=== PATIENT | female | born 1965 | race American Indian/Alaskan Native ===

== ENCOUNTER 2021-03-08 04:44 | Emergency (ER) | payer MEDICARE ==
[2021-03-08] MEDS ORDERED: KETOROLAC 30 MG/1 ML INJ IM ONE (06:21)
[2021-03-08] MEDS ORDERED: amLODIPine 5 MG TAB PO ONE (06:22)
--- NOTE | 2021-03-08 06:53 | XRay Report ---
CHEST 1 VIEW INDICATION: hypertension. COMPARISON: None. FINDINGS: Support devices: None. Heart: Normal. Lungs/Pleura: No acute pulmonary or pleural findings. IMPRESSION: 1. No acute findings. Signer Name: Rickey Kellogg MD Signed: 03/08/2021 6:49 AM Workstation Name: [id number]
--- NOTE | 2021-03-08 07:02 | Emergency Department Report ---
ED General Adult HPI - General Chief complaint: Abdominal Pain Stated complaint: KIDNEY STONES Time Seen by Provider: 03/08/21 06:02 Source: EMS Mode of arrival: Stretcher Limitations: No Limitations - History of Present Illness Initial comments: This is a 55-year-old female with a history of insulin-dependent diabetes and hypertension. She presents to the emergency department with multiple complaints. She states that she receives her care at [facility] and that she has recently been in the emergency department. According to the triage note she was diagnosed with a "kidney stone" and given Percocet but has ran out. The patient tells me that she has taken Percocet for "20 to 30 years". Apparently she does have a chronic pain syndrome. The patient is a rather poor historian. She is somewhat lethargic upon my encounter. She does not describe what sort of testing she underwent at [facility] recently. She states "I have no veins". Her chief complaint appears to be shoulder pain. First she states that only her right shoulder hurts shortly thereafter she limited it to her left shoulder. Again later in the exam she told me her right shoulder was hurting. When asked for clarification she then stated that actually both shoulders hurt. Apparently she has a number of chronic pain complaints to include lower back pain, upper abdominal pain, left side pain from her axilla down. Patient does experience occasional chest tightness but states this is not the reason why she came in. -: Gradual, week(s), month(s), year(s) Location: chest, back, abdomen, upper extremity Radiation: non-radiation Quality: aching Consistency: intermittent Improves with: none Worsens with: none Associated Symptoms: denies other symptoms - Related Data Previous Rx's Medication Instructions Recorded Last Taken Type Lansoprazole [Prevacid] 15 mg PO BID #60 cap 03/08/21 Unknown Rx traMADoL [Ultram 50 MG tab] 50 mg PO Q6HR PRN #10 tablet 03/08/21 Unknown Rx Allergies Allergy/AdvReac Type Severity Reaction Status Date / Time No Known Allergies Allergy Unverified 03/08/21 04:58 ED Review of Systems ROS: Stated complaint: KIDNEY STONES Other details as noted in HPI Constitutional: denies: chills, fever Eyes: denies: eye pain, vision change ENT: denies: ear pain, throat pain Respiratory: denies: cough, shortness of breath Cardiovascular: as per HPI, chest pain. denies: palpitations Endocrine: no symptoms reported Gastrointestinal: abdominal pain. denies: nausea, vomiting, diarrhea Genitourinary: discharge. denies: urgency, dysuria Musculoskeletal: back pain. denies: joint swelling, arthralgia Skin: denies: rash, lesions Neurological: denies: headache, weakness, paresthesias Psychiatric: denies: anxiety, depression Hematological/Lymphatic: denies: easy bleeding, easy bruising ED Past Medical Hx - Past Medical History Hx Hypertension: Yes Hx COPD: Yes - Social History Smoking Status: Current Every Day Smoker Substance Use Type: None - Medications Home Medications: Home Medications Medication Instructions Recorded Confirmed Last Taken Type Lansoprazole [Prevacid] 15 mg PO BID #60 cap 03/08/21 Unknown Rx traMADoL [Ultram 50 MG tab] 50 mg PO Q6HR PRN #10 tablet 03/08/21 Unknown Rx ED Physical Exam - General Limitations: No Limitations General appearance: in no apparent distress, lethargic - Head Head exam: Present: atraumatic, normocephalic - Eye Eye exam: Present: normal appearance. Absent: scleral icterus - ENT ENT exam: Present: mucous membranes moist - Neck Neck exam: Present: normal inspection - Respiratory Respiratory exam: Present: normal lung sounds bilaterally. Absent: respiratory distress - Cardiovascular Cardiovascular Exam: Present: regular rate, normal rhythm. Absent: systolic murmur, diastolic murmur, rubs, gallop - GI/Abdominal GI/Abdominal exam: Present: soft, normal bowel sounds. Absent: distended, tenderness, guarding, rebound - Extremities Exam Extremities exam: Present: normal inspection - Back Exam Back exam: Present: normal inspection - Neurological Exam Neurological exam: Present: alert, oriented X3, CN II-XII intact. Absent: motor sensory deficit - Psychiatric Psychiatric exam: Present: normal mood, flat affect - Skin Skin exam: Present: warm, dry, intact, normal color. Absent: rash ED Course Vital Signs 03/08/21 03/08/21 03/08/21 04:54 04:59 05:00 Temperature 97.9 F Pulse Rate 90 86 Respiratory 19 Rate Blood Pressure 172/101 O2 Sat by Pulse 100 100 Oximetry 03/08/21 03/08/21 03/08/21 05:16 06:00 06:16 Temperature Pulse Rate 83 83 87 Respiratory 18 16 20 Rate Blood Pressure 172/101 172/101 175/84 O2 Sat by Pulse 100 100 Oximetry 03/08/21 03/08/21 03/08/21 06:44 06:46 07:00 Temperature Pulse Rate 85 87 Respiratory 18 18 15 Rate Blood Pressure 156/76 156/76 O2 Sat by Pulse 100 100 Oximetry 03/08/21 03/08/21 03/08/21 07:16 07:30 07:46 Temperature Pulse Rate 89 87 84 Respiratory 21 19 20 Rate Blood Pressure 162/82 150/78 162/82 O2 Sat by Pulse 100 100 100 Oximetry 03/08/21 03/08/21 03/08/21 08:00 08:16 08:30 Temperature Pulse Rate 88 89 89 Respiratory 21 22 21 Rate Blood Pressure 162/82 157/85 157/85 O2 Sat by Pulse 100 100 100 Oximetry 03/08/21 03/08/21 08:46 08:52 Temperature Pulse Rate 88 88 Respiratory 21 Rate Blood Pressure 172/93 O2 Sat by Pulse 100 Oximetry - Reevaluation(s) Reevaluation #1: Patient resting comfortably with a pulse oximetry of 100%. She requested medicine for her "stomach ulcer". He is appropriate for outpatient disposition. I will give her prescription for lansoprazole and tramadol. Primary care follow-up is strongly recommended. 03/08/21 08:59 ED Medical Decision Making - Lab Data Result diagrams: 03/08/21 07:01 03/08/21 07:02 Laboratory Results - last 24 hr 03/08/21 03/08/21 03/08/21 07:01 07:02 Unknown WBC 5.0 RBC 3.41 L Hgb 11.5 Hct 34.6 MCV 102 H MCH 34 H MCHC 33 RDW 14.6 Plt Count 356 Lymph % (Auto) 39.1 H Woods % (Auto) 6.3 Eos % (Auto) 7.4 H Baso % (Auto) 1.3 Lymph # (Auto) 1.9 Woods # (Auto) 0.3 Eos # (Auto) 0.4 Baso # (Auto) 0.1 Seg Neutrophils % 45.9 Seg Neutrophils # 2.3 PT 12.8 INR 0.98 Urine Color Yellow Urine Turbidity Clear Urine pH 6.0 Ur Specific [place] 1.016 Urine Protein <15 mg/dl Urine Glucose (UA) Neg Urine Ketones 20 Urine Blood Neg Urine Nitrite Neg Urine Bilirubin Neg Urine Urobilinogen < 2.0 Ur Leukocyte Esterase Neg Urine WBC (Auto) 2.0 Urine RBC (Auto) < 1.0 U Epithel Cells (Auto) 1.0 Urine Mucus Few Laboratory Results - last 24 hr 03/08/21 03/08/21 03/08/21 07:01 07:02 07:02 WBC 5.0 RBC 3.41 L Hgb 11.5 Hct 34.6 MCV 102 H MCH 34 H MCHC 33 RDW 14.6 Plt Count 356 Lymph % (Auto) 39.1 H Woods % (Auto) 6.3 Eos % (Auto) 7.4 H Baso % (Auto) 1.3 Lymph # (Auto) 1.9 Woods # (Auto) 0.3 Eos # (Auto) 0.4 Baso # (Auto) 0.1 Seg Neutrophils % 45.9 Seg Neutrophils # 2.3 PT 12.8 INR 0.98 Sodium 141 Potassium 3.9 Chloride 104.9 Carbon Dioxide 27 Anion Gap 13 BUN 9 Creatinine 0.5 L Estimated GFR > 60 BUN/Creatinine Ratio 18 Glucose 274 H Calcium 9.1 Total Bilirubin < 0.20 Direct Bilirubin < 0.2 Indirect Bilirubin 0.0 AST 13 ALT 15 Alkaline Phosphatase 84 Total Creatine Kinase 98 Troponin T < 0.010 Total Protein 5.8 L Albumin 3.2 L Albumin/Globulin Ratio 1.2 Urine Color Urine Turbidity Urine pH Ur Specific [place] Urine Protein Urine Glucose (UA) Urine Ketones Urine Blood Urine Nitrite Urine Bilirubin Urine Urobilinogen Ur Leukocyte Esterase Urine WBC (Auto) Urine RBC (Auto) U Epithel Cells (Auto) Urine Mucus Urine Opiates Screen Urine Methadone Screen Ur Barbiturates Screen Ur Phencyclidine Scrn Ur Amphetamines Screen U Benzodiazepines Scrn Urine Cocaine Screen U Marijuana (THC) Screen Drugs of Abuse Note 03/08/21 03/08/21 Unknown Unknown WBC RBC Hgb Hct MCV MCH MCHC RDW Plt Count Lymph % (Auto) Woods % (Auto) Eos % (Auto) Baso % (Auto) Lymph # (Auto) Woods # (Auto) Eos # (Auto) Baso # (Auto) Seg Neutrophils % Seg Neutrophils # PT INR Sodium Potassium Chloride Carbon Dioxide Anion Gap BUN Creatinine Estimated GFR BUN/Creatinine Ratio Glucose Calcium Total Bilirubin Direct Bilirubin Indirect Bilirubin AST ALT Alkaline Phosphatase Total Creatine Kinase Troponin T Total Protein Albumin Albumin/Globulin Ratio Urine Color Yellow Urine Turbidity Clear Urine pH 6.0 Ur Specific [place] 1.016 Urine Protein <15 mg/dl Urine Glucose (UA) Neg Urine Ketones 20 Urine Blood Neg Urine Nitrite Neg Urine Bilirubin Neg Urine Urobilinogen < 2.0 Ur Leukocyte Esterase Neg Urine WBC (Auto) 2.0 Urine RBC (Auto) < 1.0 U Epithel Cells (Auto) 1.0 Urine Mucus Few Urine Opiates Screen Negative Urine Methadone Screen Negative Ur Barbiturates Screen Negative Ur Phencyclidine Scrn Negative Ur Amphetamines Screen Negative U Benzodiazepines Scrn Negative Urine Cocaine Screen Negative U Marijuana (THC) Screen Presumptive positive Drugs of Abuse Note Disclamer - EKG Data -: EKG Interpreted by Me EKG shows normal: sinus rhythm, axis, intervals, QRS complexes, ST-T waves Rate: normal - EKG Data Interpretation: normal EKG Critical care attestation.: If time is entered above; I have spent that time in minutes in the direct care of this critically ill patient, excluding procedure time. ED Disposition Clinical Impression: Poorly-controlled hypertension Chronic pain Qualifiers: Chronic pain type: chronic pain syndrome Qualified Code(s): G89.4 - Chronic pain syndrome Disposition: DC-01 TO HOME OR SELFCARE Is pt being admited?: No Does the pt Need Aspirin: No Condition: Stable Instructions: Abdominal Pain (ED), What You Need to Know About Chronic Back Pain, Managing Your Hypertension, Hypertension, Adult Additional Instructions: Follow-up with your primary care physician on your blood pressure. Rx as directed. Return to the emergency department any acute change or worsening symptoms. Prescriptions: Lansoprazole [Prevacid] 15 mg PO BID #60 cap traMADoL [Ultram 50 MG tab] 50 mg PO Q6HR PRN #10 tablet PRN Reason: Pain Referrals: PRIMARY CARE, [Primary Care Provider] - 2-3 Days Time of Disposition: 09:02
[2021-03-08 07:14] LABS: Basophils # (Auto) 0.1 K/mm3 (0.0-0.1); Basophils % (Auto) 1.3 % (0.0-1.8); Eosinophils # (Auto) 0.4 K/mm3 (0.0-0.4); Eosinophils % (Auto) 7.4 % (0.0-4.3); Hematocrit 34.6 % (30.3-42.9); Hemoglobin 11.5 gm/dl (10.1-14.3); Lymphocytes # (Auto) 1.9 K/mm3 (1.2-5.4); Lymphocytes % (Auto) 39.1 % (13.4-35.0); Mean Corpuscular HGB Conc 33 % (30-34); Mean Corpuscular Volume 102 fl (79-97); Monocytes # (Auto) 0.3 K/mm3 (0.0-0.8); Monocytes % (Auto) 6.3 % (0.0-7.3); Platelet Count 356 K/mm3 (140-440); Red Blood Count 3.41 M/mm3 (3.65-5.03); Red Cell Distribution Width 14.6 % (13.2-15.2)
[2021-03-08 07:24] LABS: INR 0.98 (0.87-1.13)
[2021-03-08 07:54] LABS: Bilirubin,Urine NEG (Negative); Blood,Urine NEG (Negative); Color,Urine Yellow (Yellow); Mucus,Urine FEW /HPF; Protein,Urine <15 mg/dL mg/dL (Negative); RBC,Urine < 1.0 /HPF (0.0-6.0); Urobilinogen,Urine < 2.0 mg/dL (<2.0)
[2021-03-08 08:19] LABS: Alanine Aminotransferase 15 units/L (7-56); Albumin 3.2 g/dL (3.9-5); Blood Urea Nitrogen 9 mg/dL (7-17); Calcium 9.1 mg/dL (8.4-10.2); Hemolysis Index 10
[2021-03-08 08:20] LABS: Amphetamine Screen,Urine Negative; Benzodiazepines Screen,Urine Negative; Cocaine Screen,Urine Negative; Methadone Screen,Urine Negative; Opiate Screen,Urine Negative
[2021-03-08 08:21] LABS: BUN/Creatinine Ratio 18; Bilirubin,Direct < 0.2 mg/dL (0-0.2)
[2021-03-08 08:48] LABS: Cannabinoid Screen,Urine PRESUMPTIVE POSITIVE
[2021-03-08 10:39] VITALS: BP 172/88
--- NOTE | 2021-03-08 17:15 | Electrocardiograph Report ---
[facility] Test Date: 2021-03-08 Test Time: 06:41:26 Pat Name: ABELINO DOWNING Department: Room: Gender: F Claim Manager: MARVA : 1965 Requested By: TYREL CABELLO Order Number: [id number] Reading MD: Cecelia Pires Measurements Intervals [place] Rate: 85 P: 61 NH: 176 QRS: 65 QRSD: 76 T: 68 QT: 390 QTc: 463 Interpretive Statements Sinus rhythm Probable left atrial enlargement No previous ECG available for comparison Electronically Signed On 03-08-2021 17:15:42 EDT by Cecelia Pires
== END 2021-03-08 10:40 | disposition home or self-care (01) ==
LOC: ED 04:44
DX: I10 Essential (primary) hypertension (principal); G89.29 Other chronic pain; M54.5 Low back pain; R10.10 Upper abdominal pain, unspecified; J44.9 Chronic obstructive pulmonary disease, unspecified; F17.200 Nicotine dependence, unspecified, uncomplicated; Z79.899 Other long term (current) drug therapy
CPT/HCPCS: 36415; 71045; 80048; 80076; 80307; 81001; 82550; 84484; 85025; 85610; 93005; 96372; 99284; J1885